=== PATIENT | male | born 1995 | race Caucasian/White ===

== ENCOUNTER 2017-01-03 04:27 | Emergency (ER) | payer BC, OTHER ==
[~2017-01-03] VITALS: Ht 185.4 cm; Wt 158.8 kg
--- OUTSIDE RECORDS SUMMARY | 2017-01-03 04:35 | XMS REPORT | Clinical Summary ---
Author Author Admin, RIVKA Organization [facility] Address Unknown Phone Unavailable Allergies, Adverse Reactions, Alerts Allergy Name Reaction Description Start Date Severity Status Provider No Known Allergies Daysi Pugh MA Conditions or Problems Problem Name Problem Code Onset Date Status Entry Date Provider Comment Standard Description Annotate FAMILY HISTORY OF HYPERTENSION V17.4 Active Lizbeth Bowers MD Family history of other cardiovascular diseases ABNORMAL WEIGHT GAIN 783.1 Active Lizbeth Bowers MD Abnormal weight gain HYPERTRIGLYCERIDEMIA 272.1 Resolved Lizbeth Bowers MD Pure hyperglyceridemia WELL CHILD EXAM V20.2 Inactive Lizbeth Bowers MD Routine infant or child health check LOCALIZED SUPERFICIAL SWELLING MASS OR LUMP 782.2 Resolved 11/05 Lizbeth Bowers MD Localized superficial swelling, mass, or lump POISON OAK/EMELY 692.6 Inactive Lizbeth Bowers MD Contact dermatitis and other eczema due to plants [except food] WELL CHILD EXAM V20.2 Inactive Lizbeth Bowers MD Routine infant or child health check OTITIS MEDIA, LEFT 382.9 Resolved Lizbeth Bowers MD Unspecified otitis media Health screening V70.0 Resolved Lizbeth Bowers MD Routine general medical examination at a health care facility Club feet 754.70 Active Lizbeth Bowers MD [place], unspecified HYPERTRIGLYCERIDEMIA ICD-272.1 Inactive Lizbeth Bowers MD WELL CHILD EXAM ICD-V20.2 Inactive Lizbeth Bowers MD LOCALIZED SUPERFICIAL SWELLING MASS OR LUMP ICD-782.2 Inactive Lizbeth Bowers MD POISON OAK/EMELY ICD-692.6 Inactive Lizbeth Bowers MD WELL CHILD EXAM ICD-V20.2 Inactive Lizbeth Bowers MD OTITIS MEDIA, LEFT ICD-382.9 Inactive Lizbeth Bowers MD Health screening ICD-V70.0 Inactive Lizbeth Bowers MD Medication List Medication Instructions Start Date Stop Date Generic Name NDC Status Provider Patient Instruction AMOXICILLIN 500 MG CAP 1 tab by mouth 3 times daily x 10 days AMOXICILLIN [id number] No Longer Active Michael ARCHIBALD Active AMOXICILLIN 500 MG CAP 1 tab by mouth 3 times daily x 10 days AMOXICILLIN 500 MG CAP [id number] AMOXICILLIN Inactive Immunizations Vaccine Administration Date Value Standard Description Hepatitis A vaccine, ped/adol, 2 dose (Havrix 2 dose ped/adol, Vaqta ped/adol) , #2 Havrix (2 dose - Ped/Adol) [CVX83] hepatitis A vaccine, pediatric/adolescent dosage, 2 dose schedule hepatitis A immunization #1 Havrix-Pedi hepatitis A vaccine, unspecified formulation chicken pox immunization #2 Historical varicella virus vaccine dT (Diphtheria and Tetanus) booster given Adacel Tdap Td(adult) unspecified formulation MPSV4 (meningococcal polysaccharide vaccination) Menactra meningococcal polysaccharide vaccine (MPSV4) Adacel (Tetanus, reduced Diphtheria, and acellular Pertussis Immunization) Adacel [[id number]] tetanus toxoid, reduced diphtheria toxoid, and acellular pertussis vaccine, adsorbed DPT immunization #5 Historical oral polio vaccine (OPV) #4 Historical poliovirus vaccine, unspecified formulation MMR (measles, mumps, rubella) virus immunization #2 Historical chicken pox immunization #1 Historical varicella virus vaccine hepatitis B vaccine #3 Historical hepatitis B vaccine, unspecified formulation DPT immunization #4 DTaP Hemophilus influenza B immunization #4 Historical Haemophilus influenzae type b vaccine, conjugate unspecified formulation MMR (measles, mumps, rubella) virus immunization #1 Historical DPT immunization #3 DTaP Hemophilus influenza B immunization #3 Historical Haemophilus influenzae type b vaccine, conjugate unspecified formulation oral polio vaccine (OPV) #3 Historical poliovirus vaccine, unspecified formulation DPT immunization #2 DTaP Hemophilus influenza B immunization #2 Historical Haemophilus influenzae type b vaccine, conjugate unspecified formulation oral polio vaccine (OPV) #2 Historical poliovirus vaccine, unspecified formulation hepatitis B vaccine #2 given Historical hepatitis B vaccine, unspecified formulation hepatitis B vaccine #1 given Historical hepatitis B vaccine, unspecified formulation DPT immunization #1 DTaP Hemophilus influenza B immunization #1 Historical Haemophilus influenzae type b vaccine, conjugate unspecified formulation oral polio vaccine (OPV) #1 Historical poliovirus vaccine, unspecified formulation Vital Signs Date Name Value Unit Range Description blood pressure, diastolic - 8462-4 84 mm[Hg] BP gutierrez blood pressure, systolic - 8480-6 134 mm[Hg] BP sys height E&M - 8302-2 72 [in_us] Bdy height temperature E&M 98.1 [degF] Body temperature weight E&M - 3141-9 344.50 [lb_av] Weight Measured Encounters Code Encounter Date Provider Facility CPT-81578 Level 3 Est. 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 Patient 18:13:03 CDT Michael ARCHIBALD [facility] CPT-81565 Level 3 Est. Patient 09:53:12 LUBRICATOR GRANULATOR Checo Hale MD [facility] Procedures Code Procedure Name Date Entry Date Standard Description CPT-PV Prev. Care Visit 15:37:20 CDT CPT-62077 Administration single or combination vaccine inc oral 10 :45:38 CDT CPT-18807 Hepatitis A ped/adol 2 dose schedule 10:45:38 CDT 10/30
--- OUTSIDE RECORDS SUMMARY | 2017-01-03 04:36 | XMS REPORT | Clinical Summary ---
Author Author Admin, RIVKA Organization [facility] Address Unknown Phone Unavailable Allergies, Adverse [...] 3 times daily x 10 days AMOXICILLIN [id number] No Longer Active Michael ARCHIBALD Active AMOXICILLIN 500 MG CAP 1 tab by mouth 3 times daily x 10 days AMOXICILLIN 500 MG CAP [id number] AMOXICILLIN Inactive Immunizations Vaccine Administration Date Value [...] reduced Diphtheria, and acellular Pertussis Immunization) Adacel [[id number]] tetanus toxoid, reduced diphtheria toxoid, and acellular [...] Measured Encounters Code Encounter Date Provider Facility CPT-57607 Level 3 Est. 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 Patient 18:13:03 CDT Michael ARCHIBALD [facility] CPT-61142 Level 3 Est. Patient 09:53:12 PROPOSAL WRITER Checo Hale MD [facility] Procedures Code Procedure Name Date Entry Date Standard Description CPT-PV Prev. Care Visit 15:37:20 CDT CPT-26165 Administration single or combination vaccine inc oral 10 :45:38 CDT CPT-59579 Hepatitis A ped/adol 2 dose schedule 10:45:38 CDT 10/30
--- OUTSIDE RECORDS SUMMARY | 2017-01-03 04:36 | XMS REPORT | Continuity of Care Document ---
Author Author [facility] Organization [facility] Address Unknown Phone Unavailable Allergies Medications Problems Procedures Results Encounters ACCT No. Visit Date/Time Discharge Status Pt. Type Provider Facility Loc./Unit Complaint [id number] 12/17/2015 12:45:01 ACT Unknown
--- OUTSIDE RECORDS SUMMARY | 2017-01-03 04:36 | XMS REPORT | Clinical Summary ---
Author Author Admin, RIVKA Organization [facility] Address Unknown Phone Unavailable Allergies, Adverse Reactions, [...] MD WELL CHILD EXAM ICD-V20.2 Inactive Lizbeth Bowres MD OTITIS MEDIA, LEFT ICD-382.9 Inactive Lizbeth Bowers MD Health screening ICD-V70.0 Inactive Lizbeth Bowers MD Medication List Medication Instructions Start Date Stop Date Generic Name NDC Status Provider Patient Instruction AMOXICILLIN 500 MG CAP 1 tab by mouth 3 times daily x 10 days AMOXICILLIN [id number] No Longer Active Michael ARCHIBALD Active AMOXICILLIN 500 MG CAP 1 tab by mouth 3 times daily x 10 days AMOXICILLIN 500 MG CAP [id number] AMOXICILLIN Inactive Immunizations Vaccine Administration Date Value [...] reduced Diphtheria, and acellular Pertussis Immunization) Adacel [[id number]] tetanus toxoid, reduced diphtheria toxoid, and acellular [...] Measured Encounters Code Encounter Date Provider Facility CPT-74345 Level 3 Est. 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 Patient 18:13:03 CDT Michael ARCHIBALD [facility] CPT-58902 Level 3 Est. Patient 09:53:12 SWINE NUTRITIONIST Checo Hale MD [facility] Procedures Code Procedure Name Date Entry Date Standard Description CPT-PV Prev. Care Visit 15:37:20 CDT CPT-14760 Administration single or combination vaccine inc oral 10 :45:38 CDT CPT-80188 Hepatitis A ped/adol 2 dose schedule 10:45:38 CDT 10/30
--- NOTE | 2017-01-03 04:57 | ED General ---
General Chief Complaint: Abdominal/GI Problems Stated Complaint: DIZZY,VOMITING,SWEATING Nursing Triage Note: NAUSEA/VOMITTING, DIZZINESS X3HRS Nursing Sepsis Screen: No Definite Risk Source of Information: Patient, Family (mom) Exam Limitations: No Limitations History of Present Illness Time Seen by Provider: 04:49 Initial Comments Patient presents to ER by private conveyance with a chief complaint of several hours ago he began dispensing some dizziness when standing up or sitting down that is only resolved by laying down staring straight at the ceiling. The dizziness is described as the room spinning around him. It is also accompanied by some nausea and has vomited a couple times because of the dizziness. He's had no blood in the vomitus. He has no headache, ear pain, popping or congestion in the ears or nose. No sore throat, fevers, cough, shortness of breath, chest pain, rash, diarrhea, constipation. Allergies and Home Medications Allergies Coded Allergies: No Known Drug Allergies (Unverified , 01/03/17) Home Medications No Active Prescriptions or Reported Meds Constitutional: No chills, No diaphoresis, dizziness, No fever EENTM: No ear discharge, No hearing loss, No ear pain, No eye pain, No tearing , No vision loss, No dental problems, No hoarseness, No mouth pain Respiratory: No cough, No orthopnea, No short of breath, No wheezing Cardiovascular: No chest pain, No Hx of Intervention, No palpitations Gastrointestinal: No abdominal pain, No constipation, No diarrhea, nausea, vomiting Genitourinary: No discharge, No dysuria Musculoskeletal: No back pain, No joint pain, No joint swelling Skin: No pruritus, No rash Psychiatric/Neurological: Denies Headache, Denies Numbness, Denies Paresthesia , Denies Pre-Existing Deficit, Denies Seizure Past Mthwmig-Xvbraw-Fqxncd Hx Patient Social History Alcohol Use: Denies Use Recreational Drug Use: No Smoking Status: Never a Smoker 2nd Hand Smoke Exposure: No Recent Foreign Travel: No Contact w/Someone Who Travel: No Recent Infectious Disease Expo: No Recent Hopitalizations: No Immunizations Up To Date Tetanus Booster (TDap): Unknown PED Vaccines UTD: Yes Seasonal Allergies Seasonal Allergies: No Surgeries History of Surgeries: Yes (BILATERAL HANDS/FEET, WEBBING/CLUB FEET) Respiratory History of Respiratory Disorde: No Cardiovascular History of Cardiac Disorders: No Neurological History of Neurological Disord: No Genitourinary History of Genitourinary Disor: No Gastrointestinal History of Gastrointestinal Di: No Musculoskeletal History of Musculoskeletal Dis: No Endocrine History of Endocrine Disorders: No HEENT History of HEENT Disorders: No Cancer History of Cancer: No Psychosocial History of Psychiatric Problem: No Integumentary History of Skin or Integumenta: No Blood Transfusions History of Blood Disorders: No Physical Exam Vital Signs Vital Sign - Last 12Hours 01/03/17 04:48 Temp 96.5 Pulse 95 Resp 18 B/P (MAP) 176/81 Pulse Ox 97 O2 Delivery Room Air Capillary Refill : Less Than 3 Seconds General Appearance: No Apparent Distress, WD/WN Eyes: Bilateral Eye Normal Inspection, Bilateral Eye PERRL, Bilateral Eye EOMI HEENT: PERRL/EOMI, Pharynx Normal, TM Abnormal (L) (retracted with mucoid effusion. No erythema or injection.) Neck: Full Range of Motion, Normal Inspection, Non Tender, Supple Respiratory: Chest Non Tender, Lungs Clear, Normal Breath Sounds, No Accessory Muscle Use Cardiovascular: Regular Rate, Rhythm, No Edema, No Gallop, No Murmur, Normal Peripheral Pulses Gastrointestinal: Normal Bowel Sounds, Non Tender, Soft, Other (obese) Extremity: Normal Capillary Refill, No Pedal Edema, Other (chronic right hand deformity) Neurologic/Psychiatric: Alert, Oriented x3 Skin: Normal Color, Diaphoresis Lymphatic: No Adenopathy Progress/Results/Core Measures Results/Orders My Orders Orders - MARLEY JOHNSON Ondansetron Oral Dissolve Tab (Zofran (01/03/17 05:00) Rx-Ondansetron Po (Rx-Zofran Po) (01/03/17 05:22) Medications Given in ED Current Medications Medications Dose Ordered Sig/Conchis Route Start Time Stop Time Status Last Admin Dose Admin Ondansetron HCl 4 mg ONCE ONCE PO 01/03/17 05:00 01/03/17 05:01 DC 01/03/17 04:56 4 MG Vital Signs/I&O Vital Sign - Last 12Hours 01/03/17 04:48 Temp 96.5 Pulse 95 Resp 18 B/P (MAP) 176/81 Pulse Ox 97 O2 Delivery Room Air Blood Pressure Mean: 112 Progress Note #1: Time: 04:56 Progress Note History sounds like benign paroxysmal positional vertigo. We'll do Strathcona-Hallpike maneuver for confirmation and teach him Marline's maneuvers if it's confirmed. Progress Note #2: Time: 05:23 Progress Note Kennedy-Hallpike performed was mostly positive for nystagmus about 30 seconds and dizziness on the right side however his left side had some dizziness and very mild nystagmus as well. We'll send him home some nausea medicine and talkative Marline maneuvers and gave him handouts. It is not getting improvement in the next week he can follow-up with his primary care physician for physical therapy tilt table follow-up. Departure Impression Impression: Primary Impression: Benign paroxysmal positional vertigo, bilateral Disposition: 01 HOME, SELF-CARE Condition: Stable Departure-Patient Inst. Decision time for Depature: 05:24 Referrals: [facility] (PCP/Family) Primary Care Physician Patient Instructions: Vertigo (a Type of Dizziness) (DC), Vestibular Exercises Add. Discharge Instructions: Perform the Marline maneuvers at least 10 times a day or until your symptoms completely resolved. If you're not getting improvement within the first 1-2 weeks follow-up with her primary care physician and look into physical therapy tilt table maneuvers. Use the Zofran under the tongue and allowed to dissolve every 6 hours as needed for nausea. All discharge instructions reviewed with patient and/or family. Voiced understanding. Scripts Ondansetron (Ondansetron Odt) 4 Mg Tab.rapdis 4 MG PO Q6H Y for NAUSEA/VOMITING, #8 TAB 0 Refills Prov: MARLEY JOHNSON 01/03/17 Work/School Note: School/Childcare Release Date Seen in the Emergency Department: Jan 03, 2017 Time Dismissed from Emergency Department: 05:26 Return to School: Jan 04, 2017 Restrictions: No Restrictions MARLEY JOHNSON Jan 03, 2017 04:57
[2017-01-03] MEDS ORDERED: ONDANSETRON 4 MG (ZOFRAN) ORAL DISSOLVE TAB PO ONE (05:00)
[2017-01-03] MEDS ORDERED: RX-ONDANSETRON 4 MG ODT (ZOFRAN) PPK #4 PO STA (05:22)
[2017-01-03] MEDS ORDERED: ONDA4TAB11 PO (05:26)
[2017-01-03 05:31] VITALS: BP 156/71
== END 2017-01-03 05:29 | disposition home or self-care (01) ==
LOC: ER 04:32
DX: H81.13 Benign paroxysmal vertigo, bilateral (principal)
CPT/HCPCS: 99283